=== PATIENT | male | born 1980 | race Caucasian/White ===

== ENCOUNTER 2016-09-05 14:09 | Emergency (ER) | payer SELFPAY ==
[~2016-09-05] VITALS: Ht 170.2 cm; Wt 61.9 kg
[~2016-09-05 14:09] MED LIST: MOTR200T PO
[2016-09-05 14:11] VITALS: BP 115/80; PULSE 90; RESP 16; TEMP 97.8; O2SAT 99
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
[2016-09-05] MEDS ORDERED: CYCL5TAB PO (14:26)
[2016-09-05] MEDS ORDERED: IBUP800T23 PO (14:27)
== END 2016-09-05 14:45 | disposition home or self-care (01) ==
LOC: PHEFT 14:09
DX: M25.512 Pain in left shoulder (principal); S46.009A Unspecified injury of muscle(s) and tendon(s) of the rotator cuff of unspecified shoulder, initial encounter; F17.210 Nicotine dependence, cigarettes, uncomplicated
CPT/HCPCS: 99283

== ENCOUNTER 2016-11-26 11:01 | Emergency (ER) | payer BC ==
[~2016-11-26 11:01] MED LIST changes: +CYCL5TAB PO; +IBUP800T23 PO; -MOTR200T PO
[2016-11-26 11:18] VITALS: BP 131/92; PULSE 68; RESP 20; O2SAT 99
[2016-11-26] MEDS ORDERED: DEXTLIQ44 (11:44)
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
== END 2016-11-26 12:50 | disposition home or self-care (01) ==
LOC: PHEFT 11:01
DX: B34.9 Viral infection, unspecified (principal); F32.9 Major depressive disorder, single episode, unspecified; F17.200 Nicotine dependence, unspecified, uncomplicated
CPT/HCPCS: 99282

== ENCOUNTER 2017-02-03 12:10 | Emergency (ER) | payer BC ==
[~2017-02-03 12:10] MED LIST changes: -CYCL5TAB PO; +DEXTLIQ44; -IBUP800T23 PO
[2017-02-03 12:13] VITALS: BP 144/87; PULSE 76; RESP 22; TEMP 98; O2SAT 97
[2017-02-03] MEDS ORDERED: SODIUM CHLOR 0.9% 1000 ML INJ 1,000 ML IV ONE (12:30)
[2017-02-03] MEDS ORDERED: ONDANSETRON HCL 4 MG/2 ML VIAL IV PUSH ONE (12:30)
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
[2017-02-03 12:47] LABS: AUTOMATED NEUTROPHIL # 7.2 TH/MM3 (1.8-7.7); BASOPHIL # 0.2 TH/MM3 (0-0.2); BASOPHIL % 2.2 % (0.0-2.0); EOSINOPHIL % 0.4 % (0.0-4.0); HEMATOCRIT 48.1 % (39.0-51.0); HEMO FLAGS DIFF FINAL; LYMPH % 19.7 % (9.0-44.0); MEAN CELL VOLUME 90.9 FL (80.0-100.0); MEAN CORPUSCULAR HEMOGLOBIN 30.4 PG (27.0-34.0); MEAN CORPUSCULAR HGB CONC 33.5 % (32.0-36.0); MONO % 8.6 % (0.0-8.0); NEUT % 69.1 % (16.0-70.0); PLATELET COUNT 324 TH/MM3 (150-450); RED BLOOD COUNT 5.29 MIL/MM3 (4.50-5.90); RED CELL DISTRIBUTION WIDTH 12.7 % (11.6-17.2); WHITE BLOOD COUNT 10.3 TH/MM3 (4.0-11.0)
[2017-02-03 12:54] LABS: CHLORIDE 102 MEQ/L (98-107); POTASSIUM 3.6 MEQ/L (3.5-5.1); SODIUM (NA) 136 MEQ/L (136-145)
[2017-02-03 12:58] LABS: ANION GAP 7 MEQ/L (5-15); BICARBONATE 27.3 MEQ/L (21.0-32.0); BLOOD UREA NITROGEN 10 MG/DL (7-18)
[2017-02-03 13:01] LABS: ALT (GPT) 20 U/L (12-78); AST (GOT) 16 U/L (15-37); GLOMERULAR FILTRATION RATE 99 ML/MIN (>89)
[2017-02-03 13:02] LABS: TOTAL BILIRUBIN ADULT 0.7 MG/DL (0.2-1.0)
[2017-02-03 13:03] LABS: ALKALINE PHOSPHATASE 71 U/L (45-117)
[2017-02-03] MEDS ORDERED: IOHEXOL 350 MG/ML 10 ML VIAL (for RAD DIAG) IVCONTRAST ONE (14:10)
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
[2017-02-03 14:31] VITALS: BP 132/74; PULSE 53; RESP 20; O2SAT 98
== END 2017-02-03 14:59 | disposition home or self-care (01) ==
LOC: PHED 12:10
DX: K52.9 Noninfective gastroenteritis and colitis, unspecified (principal); F17.200 Nicotine dependence, unspecified, uncomplicated
CPT/HCPCS: 74177; 80053; 85025; 96360; 99285; J2405; J7030; Q9967